=== PATIENT | male | born 1975 | race Caucasian/White ===

== ENCOUNTER 2017-03-30 17:22 | Inpatient (IN) | payer MEDICAID ==
[2017-03-30 17:51] LABS: ADD MAN DIFF? NO
[2017-03-30 17:53] LABS: BASOPHIL # 0.1 10^3/ul (0.0-0.1); BASOPHILS % 0.6 % (0.0-2.0); EOSINOPHILS # 0.1 10^3/ul (0.0-0.5); EOSINOPHILS % 0.8 % (0.0-7.0); HEMATOCRIT 45.3 % (42.0-52.0); LYMPHOCYTES # 1.9 10^3/ul (0.8-2.9); LYMPHOCYTES % 17.4 % (15.0-51.0); MEAN CORPUSCULAR HEMOGLOBIN 30.8 pg (29.0-33.0); MEAN CORPUSCULAR HGB CONC 36.2 g/dl (32.0-37.0); MEAN CORPUSCULAR VOLUME 85.2 fl (82.0-101.0); MEAN PLATELET VOLUME 11.5 fl (7.4-10.4); MONOCYTE # 0.6 10^3/ul (0.3-0.9); MONOCYTES % 5.8 % (0.0-11.0); NEUTROPHIL # 8.3 10^3/ul (1.6-7.5); PLATELET COUNT 222 10^3/UL (140-415); RED BLOOD COUNT 5.32 10^6/ul (4.70-6.10); RED CELL DISTRIBUTION WIDTH 12.6 % (11.5-14.5)
[2017-03-30 17:53] LABS: WHITE BLOOD COUNT 11.1 10^3/ul (4.8-10.8)
[2017-03-30] MEDS: SOD CHLORIDE 0.9% 2,000 ML IV (17:57)
[2017-03-30 18:11] LABS: HEMOGLOBIN 16.4 g/dl (14.0-18.0)
[2017-03-30 18:12] LABS: LACTIC ACID 1.6 mmol/L (0.5-2.0)
[2017-03-30 18:12] LABS: ADD UMIC NO; UR ASCORBIC ACID NEGATIVE (NEGATIVE); UR BILIRUBIN (Dip) NEGATIVE (NEGATIVE); UR BLOOD (Dip) NEGATIVE (NEGATIVE); UR CLARITY CLEAR (CLEAR); UR COLOR COLORLESS (YELLOW); UR GLUCOSE (Dip) 3+ mg/dL (NEGATIVE); UR KETONES (Dip) 1+ mg/dL (NEGATIVE); UR LEUKOCYTE ESTERASE (Dip) NEGATIVE Leu/ul (NEGATIVE); UR NITRITE (Dip) NEGATIVE (NEGATIVE); UR SPECIFIC GRAVITY (Dip) 1.024 (1.003-1.030); UR TOTAL PROTEIN (Dip) NEGATIVE (NEGATIVE); UR UROBILINOGEN (Dip) NEGATIVE (NEGATIVE)
[2017-03-30 18:28] LABS: ANION GAP 27 (8-16); BLOOD UREA NITROGEN 21 mg/dl (7-20); CALCIUM 9.4 mg/dl (8.4-10.2); CARBON DIOXIDE 15 mmol/L (21-31); CHLORIDE 87 mmol/L (97-110); CREATININE 0.77 mg/dl (0.61-1.24); POTASSIUM 5.5 mmol/L (3.5-5.1)
[2017-03-30 18:30] LABS: SODIUM 123 mmol/L (135-144)
[2017-03-30 18:37] LABS: GLUCOSE 1006 mg/dl (70-220)
[2017-03-30] MEDS: INSULIN HUMAN REGULAR 100 UNIT in SOD CHLORIDE 0.9% 99 ML IV (19:16)
[2017-03-30] MEDS: SOD CHLORIDE 0.9% 1,000 ML IV (19:24)
[2017-03-30] MEDS ORDERED: DEXTROSE 50% 50 ML SYRINGE IV ×2 (19:30)
[2017-03-30 19:45] LABS: AADO2 Arterial 33.7 mmHg (7.0-24.0); Allen Test ACCEPTAB; Arterial Base Excess -4.4 mmol/L (-3.0-3); Arterial Blood Gas Oxygen Sat 94.8 mmHG (95.0-98.0); Arterial COHb 2.6 % (0.0-3.0); Arterial Fraction of Oxyhgb 92.1 % (93.0-99.0); Arterial HCO3 19.8 mmol/L (22.0-26.0); Arterial MetHb 0.2 % (0.0-1.5); Arterial Total Hemglobin 16.6 g/dl (12.0-18.0); Arterial pCO2 34.8 mmhg (35-45); MODE ROOM AIR; Site Right Radial
[2017-03-30] MEDS ORDERED: INSULIN HUMAN REGULAR 100 UNIT in SOD CHLORIDE 0.9% 99 ML IV (20:00)
[2017-03-30] MEDS: ACCU-CHEK XX ×4 (20:00→23:00)
[2017-03-30 20:02] LABS: HEMOGLOBIN A1C 11.7 % (0-5.9)
[2017-03-30 20:09] LABS: PHOSPHORUS 6.9 mg/dl (2.5-4.9)
[2017-03-30] MEDS: NS + KCL 20 MEQ 1,000 ML IV (21:24)
[2017-03-30] MEDS: LACTATED RINGER'S 1,000 ML IV ×2 (21:30→22:18)
[2017-03-30 21:55] LABS: ANION GAP 22 (8-16); BLOOD UREA NITROGEN 16 mg/dl (7-20); CALCIUM 8.6 mg/dl (8.4-10.2); CARBON DIOXIDE 16 mmol/L (21-31); CHLORIDE 102 mmol/L (97-110); CREATININE 0.64 mg/dl (0.61-1.24); GLUCOSE 317 mg/dl (70-220); POTASSIUM 4.5 mmol/L (3.5-5.1)
[2017-03-30 21:56] LABS: SODIUM 135 mmol/L (135-144)
[2017-03-30 22:53] LABS: LACTIC ACID 1.4 mmol/L (0.5-2.0)
[2017-03-31] MEDS: ACCU-CHEK XX ×11 (01:00→09:03)
[2017-03-31] MEDS: SODIUM CHLORIDE IV (01:07)
[2017-03-31] MEDS: DEXTROSE 10% IV (01:07)
[2017-03-31] MEDS: POTASSIUM CHLORIDE IV (01:07)
[2017-03-31 01:19] LABS: LACTIC ACID 1.3 mmol/L (0.5-2.0)
[2017-03-31 01:30] LABS: ANION GAP 14 (8-16); BLOOD UREA NITROGEN 15 mg/dl (7-20); CALCIUM 8.6 mg/dl (8.4-10.2); CARBON DIOXIDE 22 mmol/L (21-31); CHLORIDE 103 mmol/L (97-110); CREATININE 0.66 mg/dl (0.61-1.24); GLUCOSE 158 mg/dl (70-220); POTASSIUM 3.3 mmol/L (3.5-5.1); SODIUM 136 mmol/L (135-144)
[2017-03-31] MEDS: SOD CHLORIDE 0.9% 1,000 ML IV (04:08)
[2017-03-31 05:40] LABS: ANION GAP 10 (8-16); BLOOD UREA NITROGEN 13 mg/dl (7-20); CALCIUM 8.1 mg/dl (8.4-10.2); CARBON DIOXIDE 23 mmol/L (21-31); CHLORIDE 105 mmol/L (97-110); CREATININE 0.59 mg/dl (0.61-1.24); GLUCOSE 287 mg/dl (70-220); POTASSIUM 3.4 mmol/L (3.5-5.1); SODIUM 135 mmol/L (135-144)
[2017-03-31 06:16] LABS: PHOSPHORUS 4.2 mg/dl (2.5-4.9)
[2017-03-31] MEDS: POTASSIUM CHLORIDE (SR) 20 MEQ TAB PO (07:20)
[2017-03-31 07:31] LABS: TRIGLYCERIDES > 1575 mg/dl (0-149)
[2017-03-31 07:48] LABS: CHOLESTEROL 252 mg/dl (100-200)
[2017-03-31 07:48] LABS: CHOL/HDL RATIO 9.6 RATIO; HDL CHOLESTEROL 26 mg/dl (27-67)
[2017-03-31] MEDS ORDERED: GLUCAGON 1 MG INJ IM (10:00)
[2017-03-31] MEDS ORDERED: DEXTROSE 50% 50 ML SYRINGE IV ×2 (10:00)
[2017-03-31] MEDS ORDERED: GLUCOSE GEL 15 GRAM TUBE BUCCAL (10:00)
[2017-03-31] MEDS ORDERED: GLUCOSE GEL 15 GRAM TUBE PO ×2 (10:00)
[2017-03-31 10:16] LABS: ANION GAP 10 (8-16); BLOOD UREA NITROGEN 11 mg/dl (7-20); CARBON DIOXIDE 22 mmol/L (21-31); CHLORIDE 108 mmol/L (97-110); CREATININE 0.56 mg/dl (0.61-1.24); GLUCOSE 199 mg/dl (70-220); POTASSIUM 3.8 mmol/L (3.5-5.1); SODIUM 136 mmol/L (135-144)
[2017-03-31 10:17] LABS: CALCIUM 8.1 mg/dl (8.4-10.2)
[2017-03-31] MEDS: INSULIN GLARGINE [LANtus] 3 ML PEN SC ×2 (10:50→21:14)
[2017-03-31] MEDS: INSULIN ASPART [NOVOLOG] 3 ML PEN SC ×5 (10:51→21:15)
[2017-04-01] MEDS: ACCU-CHEK XX (02:04)
[2017-04-01 06:41] LABS: CHOL/HDL RATIO 7.8 RATIO; HDL CHOLESTEROL 36 mg/dl (27-67)
[2017-04-01 06:41] LABS: CHOLESTEROL 283 mg/dl (100-200)
[2017-04-01 07:10] LABS: ANION GAP 14 (8-16); BLOOD UREA NITROGEN 9 mg/dl (7-20); CALCIUM 7.9 mg/dl (8.4-10.2); CARBON DIOXIDE 24 mmol/L (21-31); CHLORIDE 103 mmol/L (97-110); CREATININE 0.57 mg/dl (0.61-1.24); GLUCOSE 203 mg/dl (70-220); MAGNESIUM 1.8 mg/dl (1.7-2.5); POTASSIUM 3.5 mmol/L (3.5-5.1); SODIUM 137 mmol/L (135-144)
[2017-04-01 07:26] LABS: TRIGLYCERIDES 1571 mg/dl (0-149)
[2017-04-01] MEDS: INSULIN ASPART [NOVOLOG] 3 ML PEN SC ×3 (09:22→13:49)
[2017-04-01] MEDS: INSULIN GLARGINE [LANtus] 3 ML PEN SC (09:23)
[2017-04-01] MEDS: ASPIRIN 81 MG TAB PO (09:25)
[2017-04-01] MEDS: FISH OIL 1,000 MG CAP PO (09:25)
[2017-04-01] MEDS: FENOFIBRATE 145 MG TAB PO (09:26)
[2017-04-01 10:13] LABS: HEPATITIS B SURFACE ANTIGEN NEGATIVE (NEGATIVE)
[2017-04-01 10:30] LABS: HEPATITIS C VIRAL ANTIBODY NEGATIVE (NEGATIVE)
[2017-04-01 16:12] LABS: CREATININE, RANDOM URINE 11 mg/dL (20-370); CREATININE, RANDOM URINE 131 mg/dL (20-370); MICROALBUMIN 1.8 mg/dL; MICROALBUMIN <0.2 mg/dL; MICROALBUMIN/CREATININE RATIO 14 (<30); MICROALBUMIN/CREATININE RATIO NOTE (<30)
[2017-04-01] MEDS: POTASSIUM CHLORIDE (SR) 20 MEQ TAB PO (17:06)
[2017-04-01] MEDS: LISINOPRIL 10 MG TAB PO (17:06)
[2017-04-01] MEDS: LINAGLIPTIN 5 MG TABLET PO (17:06)
[2017-04-01] MEDS ORDERED: metFORMIN 500 MG TAB PO (17:55)
[2017-04-01] MEDS ORDERED: INSULIN ASPART [NOVOLOG] 3 ML PEN SC (17:55)
[2017-04-01] MEDS ORDERED: ATORVASTATIN 40 MG TAB PO (21:00)
[2017-04-01] MEDS ORDERED: DEXAMETHASONE 1 MG TAB PO (23:15)
[2017-04-02] MEDS ORDERED: INSULIN GLARGINE [LANtus] 3 ML PEN SC (08:00)
[2017-04-03 23:09] LABS: ISLET CELL ANTIBODY SCREEN NEGATIVE (NEGATIVE)
[2017-04-04 15:52] LABS: INSULIN AUTOANTIBODY <0.4 U/mL (<0.4)
== END 2017-04-01 17:10 | disposition home or self-care (01) | DRG 638 ==
LOC: ICU 19:29 → MS1 03-31 18:19 → E/R 17:22
DX: E11.10 Type 2 diabetes mellitus with ketoacidosis without coma (principal); E87.1 Hypo-osmolality and hyponatremia; I10 Essential (primary) hypertension; F17.210 Nicotine dependence, cigarettes, uncomplicated; G47.33 Obstructive sleep apnea (adult) (pediatric); R06.83 Snoring; E78.2 Mixed hyperlipidemia; E66.9 Obesity, unspecified; Z68.39 Body mass index [BMI] 39.0-39.9, adult; Z79.4 Long term (current) use of insulin
CPT/HCPCS: 36415; 36600; 71045; 80048; 80061; 81003; 82043; 82803; 82962; 83036; 83605; 83735; 84100; 84443; 85025; 86337; 86341; 86803; 87081; 87340; 93005; 96361; 96365; 96366; 99291-25